=== PATIENT | male | born 2000 | race Caucasian/White ===

== ENCOUNTER → 2022-03-01 | Outpatient (CLI) ==
[~2022-03-01] MED LIST: DOXY-444 PO
== END ==
LOC: M SOG 10:36
PROVIDERS: ATTEND Orthopaedic Surgery Hand Surgery
DX: M79.641 Pain in right hand (principal)

== ENCOUNTER 2022-03-04 07:45 | Day surgery (SDC) | payer OTHER ==
[~2022-03-04] VITALS: Ht 172.7 cm; Wt 66.1 kg
[~2022-03-04 07:45] MED LIST changes: +LIDOCAINE W/EPINEPHRINE 1% 20ML VIAL ID ONE; +SODIUM BICARBONATE 8.4% INJ 50MEQ 50ML VIAL ID ONE
[2022-03-04] MEDS ORDERED: LIDOCAINE 1% MDV 20ML VIAL XX ONE (09:00)
[2022-03-04] MEDS ORDERED: BUPIVACAINE HCL 0.25% 30ML VIAL As Ordered ONE (09:35)
[2022-03-04 10:24] VITALS: BP 127/79
[2022-03-04] MEDS ORDERED: PERC5TAB12 PO (10:32)
== END 2022-03-04 11:00 | disposition home or self-care (01) ==
LOC: M SDC 07:45
PROVIDERS: ATTEND Orthopaedic Surgery Hand Surgery
DX: S60.450A Superficial foreign body of right index finger, initial encounter (principal); X58.XXXA Exposure to other specified factors, initial encounter; Z79.2 Long term (current) use of antibiotics; Z88.1 Allergy status to other antibiotic agents; Z88.0 Allergy status to penicillin

== ENCOUNTER 2022-05-20 18:28 | Emergency (ER) | payer OTHER ==
[~2022-05-20] VITALS: Ht 175.3 cm; Wt 68.5 kg
[~2022-05-20 18:28] MED LIST changes: -LIDOCAINE W/EPINEPHRINE 1% 20ML VIAL ID ONE; +PERC5TAB12 PO; -SODIUM BICARBONATE 8.4% INJ 50MEQ 50ML VIAL ID ONE
[2022-05-20 19:49] LABS: BASO # 0.1 10^3/uL (0.0-0.2); BASO % 0.6 % (0.0-1.0); EOS # 0.1 10^3/uL (0.0-0.5); EOS % 0.5 % (0.0-3.0); HEMATOCRIT 43.3 % (42.0-52.0); HEMOGLOBIN 14.1 g/dl (13.5-17.5); LYMPH # 1.6 10^3/uL (1.5-5.0); LYMPH % 15.8 % (24.0-44.0); MEAN CORPUSCULAR HEMOGLOBIN 29.3 pg (27.0-33.0); MEAN CORPUSCULAR HGB CONC 32.6 g/dl (32.0-36.5); MEAN CORPUSCULAR VOLUME 89.8 fl (80.0-96.0); MONO # 0.8 10^3/uL (0.0-0.8); MONO % 8.1 % (2.0-8.0); NEUTROPHILS # 7.4 10^3/uL (1.5-8.5); NEUTROPHILS % 74.6 % (36.0-66.0); PLATELET COUNT, AUTOMATED 315 10^3/uL (150-450); RED BLOOD COUNT 4.82 10^6/uL (4.30-6.10); WHITE BLOOD COUNT 9.9 10^3/uL (4.0-10.0)
[2022-05-20 20:10] LABS: CK-MB VALUE MASS < 1.0 NG/ML (<3.6)
[2022-05-20 20:13] LABS: THYROID STIMULATING HORMONE 0.745 uIU/ML (0.55-4.78)
[2022-05-20 20:14] LABS: T UPTAKE 35.2 % (22.5-37.0)
[2022-05-20 20:17] LABS: BLOOD UREA NITROGEN 11 MG/DL (9-23); CALCIUM LEVEL 9.1 MG/DL (8.5-10.1); CARBON DIOXIDE LEVEL 25 MMOL/L (20-31); CHLORIDE LEVEL 108 MMOL/L (98-107); CPK CREATINE PHOSPHOKINASE 334 U/L (46-171); CREATININE FOR GFR 0.93 MG/DL (0.70-1.30); GLOMERULAR FILTRATION RATE > 60.0 (>60); GLUCOSE, FASTING 59 MG/DL (60-100); MB/CK RELATIVE INDEX 0.29 (< OR =4); POTASSIUM SERUM 3.5 MMOL/L (3.5-5.1); SODIUM LEVEL 141 MMOL/L (136-145)
[2022-05-20 21:14] VITALS: BP 141/70
[2022-05-20 21:42] LABS: MAGNESIUM LEVEL 1.7 MG/DL (1.8-2.4)
[2022-05-20 21:59] LABS: FREE THYROXINE INDEX 5.2 % (1.4-3.8); THYROXINE (T4) 14.8 UG/DL (4.5-10.9)
== END 2022-05-20 21:16 | disposition home or self-care (01) ==
LOC: M ED 18:28
DX: R00.2 Palpitations (principal); E16.2 Hypoglycemia, unspecified; Z88.1 Allergy status to other antibiotic agents

== ENCOUNTER 2022-06-16 20:04 | Emergency (ER) | payer OTHER ==
[~2022-06-16] VITALS: Ht 175.3 cm; Wt 65.9 kg
[~2022-06-16 20:04] MED LIST changes: +DIPH12.529 PO; +IBUP100S65 PO
[2022-06-16] MEDS ORDERED: ACET1TAB55 PO (20:08)
[2022-06-16] MEDS ORDERED: methocarbamoL 750 MG TAB PO ONE (21:55)
[2022-06-16] MEDS ORDERED: NS 1,000 ML IV ONE (21:55)
[2022-06-16] MEDS ORDERED: KETOROLAC 30 MG/ML 1ML VIAL IV ONE (21:55)
[2022-06-16 22:36] LABS: BASO # 0.1 10^3/uL (0.0-0.2); BASO % 0.6 % (0.0-1.0); EOS # 0.1 10^3/uL (0.0-0.5); EOS % 1.1 % (0.0-3.0); HEMATOCRIT 38.9 % (42.0-52.0); LYMPH # 2.2 10^3/uL (1.5-5.0); LYMPH % 27.2 % (24.0-44.0); MEAN CORPUSCULAR HEMOGLOBIN 29.5 pg (27.0-33.0); MEAN CORPUSCULAR HGB CONC 33.4 g/dl (32.0-36.5); MEAN CORPUSCULAR VOLUME 88.4 fl (80.0-96.0); MONO # 0.7 10^3/uL (0.0-0.8); MONO % 8.2 % (2.0-8.0); NEUTROPHILS % 62.6 % (36.0-66.0); PLATELET COUNT, AUTOMATED 275 10^3/uL (150-450); WHITE BLOOD COUNT 7.9 10^3/uL (4.0-10.0)
[2022-06-16 22:59] LABS: MAGNESIUM LEVEL 1.8 MG/DL (1.8-2.4)
[2022-06-16 23:41] LABS: APPEARANCE, URINE CLEAR (CLEAR); BACTERIA, URINE AUTO NEGATIVE (NEGATIVE); BILIRUBIN, URINE AUTO NEGATIVE (NEGATIVE); BLOOD, URINE BLOOD NEGATIVE (NEGATIVE); COLOR, URINE STRAW (YELLOW); GLUCOSE, URINE (UA) AUTO NEGATIVE (NEGATIVE); KETONE, URINE AUTO NEGATIVE (NEGATIVE); LEUKOCYTE ESTERASE, URINE AUTO NEGATIVE (NEGATIVE); MUCUS, URINE SMALL (NEGATIVE); NITRITE, URINE AUTO NEGATIVE (NEGATIVE); PROTEIN, URINE AUTO NEGATIVE (NEGATIVE); RBC, URINE AUTO 0 /HPF (0-3); SPECIFIC GRAVITY URINE AUTO 1.012 (1.002-1.035); SQUAMOUS EPITHELIAL CELL UR AU 0 /HPF (0-6); UROBILINOGEN, URINE AUTO 0.2 mg/dL (0.0-2.0); WBC, URINE AUTO 1 /HPF (0-3)
[2022-06-16] MEDS ORDERED: METH-1165 PO (23:57)
[2022-06-16] MEDS ORDERED: ASPE4PAD TOP (23:57)
[2022-06-16] MEDS ORDERED: NAPR-837 PO (23:57)
[2022-06-17 00:14] VITALS: BP 127/79
== END 2022-06-17 00:16 | disposition home or self-care (01) ==
LOC: M ED 20:04 → MERGE 20:04 → M ED 06-17 00:16
DX: G57.91 Unspecified mononeuropathy of right lower limb (principal); Z88.1 Allergy status to other antibiotic agents
CPT/HCPCS: 36415; 70450; 72131; 80047; 80053; 80307; 81001; 81002; 82550; 83036; 83690; 83735; 84443; 85025; 86140; 93005; 96374; 99284; J1885

== ENCOUNTER 2022-07-13 23:36 | Emergency (ER) | payer OTHER ==
[~2022-07-13] VITALS: Ht 172.7 cm; Wt 71.8 kg
[~2022-07-13 23:36] MED LIST changes: +ACET1TAB55 PO; +ASPE4PAD TOP; +METH-1165 PO; +NAPR-837 PO
[2022-07-14 06:11] VITALS: BP 130/76
== END 2022-07-14 06:23 | disposition home or self-care (01) ==
LOC: M ED 23:36
DX: M54.50 Low back pain, unspecified (principal); R20.2 Paresthesia of skin; Z88.1 Allergy status to other antibiotic agents; Z79.899 Other long term (current) drug therapy

== ENCOUNTER 2022-07-17 20:36 | Emergency (ER) | payer OTHER ==
[~2022-07-17] VITALS: Ht 172.7 cm; Wt 71.8 kg
[2022-07-17 22:53] LABS: BASO # 0.1 10^3/uL (0.0-0.2); BASO % 0.6 % (0.0-1.0); EOS # 0.1 10^3/uL (0.0-0.5); EOS % 0.7 % (0.0-3.0); HEMATOCRIT 43.1 % (42.0-52.0); HEMOGLOBIN 14.3 g/dl (13.5-17.5); LYMPH # 2.4 10^3/uL (1.5-5.0); MEAN CORPUSCULAR HEMOGLOBIN 29.7 pg (27.0-33.0); MEAN CORPUSCULAR HGB CONC 33.2 g/dl (32.0-36.5); MEAN CORPUSCULAR VOLUME 89.4 fl (80.0-96.0); MONO # 0.9 10^3/uL (0.0-0.8); MONO % 8.7 % (2.0-8.0); NEUTROPHILS # 6.3 10^3/uL (1.5-8.5); NEUTROPHILS % 64.6 % (36.0-66.0); PLATELET COUNT, AUTOMATED 312 10^3/uL (150-450); RED BLOOD COUNT 4.82 10^6/uL (4.30-6.10); WHITE BLOOD COUNT 9.8 10^3/uL (4.0-10.0)
[2022-07-17] MEDS ORDERED: ONDANSETRON 4MG 2ML VIAL IV ONE (23:15)
[2022-07-17] MEDS ORDERED: PANTOPRAZOLE 40MG VIAL IV ONE (23:15)
[2022-07-17] MEDS ORDERED: NS 1,000 ML IV ONE (23:15)
[2022-07-17 23:41] LABS: LIPASE 30 U/L (12-53)
[2022-07-17 23:43] LABS: ALBUMIN 4.3 G/DL (3.2-5.2); ALKALINE PHOSPHATASE 96 U/L (46-116); ALT/SGPT 46 U/L (7.0-40); AST/SGOT 24 U/L (<34); BILIRUBIN,DIRECT < 0.1 MG/DL (<0.4); BILIRUBIN,TOTAL 0.2 MG/DL (0.3-1.2); BLOOD UREA NITROGEN 8 MG/DL (9-23); CALCIUM LEVEL 9.3 MG/DL (8.5-10.1); CARBON DIOXIDE LEVEL 27 MMOL/L (20-31); CHLORIDE LEVEL 106 MMOL/L (98-107); GLOMERULAR FILTRATION RATE > 60.0 (>60); GLUCOSE, FASTING 91 MG/DL (60-100); POTASSIUM SERUM 3.8 MMOL/L (3.5-5.1); SODIUM LEVEL 141 MMOL/L (136-145)
[2022-07-18] MEDS ORDERED: ONDA4TAB6 PO (01:09)
[2022-07-18 01:16] VITALS: BP 142/87
== END 2022-07-18 01:18 | disposition home or self-care (01) ==
LOC: M ED 20:36
DX: K29.70 Gastritis, unspecified, without bleeding (principal); M54.9 Dorsalgia, unspecified; Z88.1 Allergy status to other antibiotic agents
CPT/HCPCS: 80048; 80076; 83690; 85025; 87486; 87581; 87633; 87798; 96374; 96375; 99283; C9113; J2405

== ENCOUNTER 2022-07-23 00:43 | Emergency (ER) | payer OTHER ==
[~2022-07-23] VITALS: Ht 172.7 cm; Wt 71.8 kg
[~2022-07-23 00:43] MED LIST changes: +ONDA4TAB6 PO
[2022-07-23 00:45] VITALS: BP 111/70
[2022-07-23] MEDS ORDERED: METH-1164 PO (06:36)
== END 2022-07-23 06:49 | disposition home or self-care (01) ==
LOC: M ED 00:43
DX: M51.27 Other intervertebral disc displacement, lumbosacral region (principal)

== ENCOUNTER 2022-08-04 21:32 | Emergency (ER) | payer OTHER ==
[~2022-08-04] VITALS: Ht 172.7 cm; Wt 69.1 kg
[~2022-08-04 21:32] MED LIST changes: +METH-1164 PO
[2022-08-04 22:11] LABS: BASO % 0.4 % (0.0-1.0); EOS # 0.1 10^3/uL (0.0-0.5); EOS % 1.1 % (0.0-3.0); HEMATOCRIT 40.7 % (42.0-52.0); HEMOGLOBIN 13.9 g/dl (13.5-17.5); LYMPH # 2.5 10^3/uL (1.5-5.0); LYMPH % 23.9 % (24.0-44.0); MEAN CORPUSCULAR HEMOGLOBIN 29.7 pg (27.0-33.0); MEAN CORPUSCULAR HGB CONC 34.2 g/dl (32.0-36.5); MONO % 9.4 % (2.0-8.0); NEUTROPHILS # 6.7 10^3/uL (1.5-8.5); NEUTROPHILS % 64.8 % (36.0-66.0); PLATELET COUNT, AUTOMATED 293 10^3/uL (150-450); RED BLOOD COUNT 4.68 10^6/uL (4.30-6.10); WHITE BLOOD COUNT 10.3 10^3/uL (4.0-10.0)
[2022-08-04 22:55] LABS: ALBUMIN 4.7 G/DL (3.2-5.2); ALKALINE PHOSPHATASE 92 U/L (46-116); ALT/SGPT 28 U/L (7.0-40); AST/SGOT 24 U/L (<34); BILIRUBIN,DIRECT 0.1 MG/DL (<0.4); BILIRUBIN,TOTAL 0.4 MG/DL (0.3-1.2); BLOOD UREA NITROGEN 13 MG/DL (9-23); CALCIUM LEVEL 9.7 MG/DL (8.5-10.1); CARBON DIOXIDE LEVEL 26 MMOL/L (20-31); CHLORIDE LEVEL 105 MMOL/L (98-107); CK-MB VALUE MASS < 1.0 NG/ML (<3.6); CPK CREATINE PHOSPHOKINASE 297 U/L (46-171); CREATININE FOR GFR 0.85 MG/DL (0.70-1.30); GLOMERULAR FILTRATION RATE > 60.0 (>60); GLUCOSE, FASTING 94 MG/DL (60-100); MB/CK RELATIVE INDEX 0.33 (< OR =4); POTASSIUM SERUM 3.5 MMOL/L (3.5-5.1); SODIUM LEVEL 139 MMOL/L (136-145); TOTAL PROTEIN 7.5 G/DL (5.7-8.2)
[2022-08-04 22:58] LABS: LIPASE 35 U/L (12-53)
[2022-08-05] MEDS ORDERED: KETOROLAC 60MG 2ML VIAL IM ONE (04:35)
[2022-08-05 05:14] LABS: CK-MB VALUE MASS < 1.0 NG/ML (<3.6)
[2022-08-05 05:16] LABS: CPK CREATINE PHOSPHOKINASE 246 U/L (46-171)
[2022-08-05 05:52] VITALS: BP 106/64
== END 2022-08-05 05:54 | disposition home or self-care (01) ==
LOC: M ED 21:32
DX: R07.89 Other chest pain (principal); F17.210 Nicotine dependence, cigarettes, uncomplicated; Z88.0 Allergy status to penicillin
CPT/HCPCS: 71046; 80048; 80076; 82550; 82553; 83690; 84484; 85025; 93005; 96374; 99284; J1885

== ENCOUNTER 2022-08-19 22:42 | Emergency (ER) | payer OTHER ==
[~2022-08-19] VITALS: Ht 172.7 cm; Wt 72.2 kg
[2022-08-20] MEDS ORDERED: methylPREDNISolone 125MG 2ML VIAL IV ONE (03:20)
[2022-08-20] MEDS ORDERED: diazePAM 10MG/2ML SYRINGE IM ONE (03:20)
[2022-08-20] MEDS ORDERED: MEDR4PAK PO (05:56)
[2022-08-20] MEDS ORDERED: VALI5TAB PO (05:56)
[2022-08-20 06:10] VITALS: BP 123/80; TEMP 96.8; O2SAT 99
== END 2022-08-20 06:25 | disposition home or self-care (01) ==
LOC: M ED 22:42
DX: M54.30 Sciatica, unspecified side (principal); M51.26 Other intervertebral disc displacement, lumbar region; Z88.0 Allergy status to penicillin; Z79.899 Other long term (current) drug therapy
CPT/HCPCS: 96372; 96374; 99283; J2930; J3360

== ENCOUNTER 2023-01-10 02:57 | Emergency (ER) | payer OTHER ==
[~2023-01-10] VITALS: Ht 172.7 cm; Wt 64.4 kg
[~2023-01-10 02:57] MED LIST changes: +MEDR4PAK PO; +VALI5TAB PO
[2023-01-10 03:45] VITALS: TEMP 98.4
[2023-01-10 06:50] LABS: BASO # 0.1 10^3/uL (0.0-0.2); BASO % 0.8 % (0.0-1.0); EOS # 0.1 10^3/uL (0.0-0.5); EOS % 0.9 % (0.0-3.0); HEMOGLOBIN 14.6 g/dl (13.5-17.5); LYMPH # 2.3 10^3/uL (1.5-5.0); LYMPH % 28.9 % (24.0-44.0); MEAN CORPUSCULAR HEMOGLOBIN 29.9 pg (27.0-33.0); MEAN CORPUSCULAR VOLUME 88.1 fl (80.0-96.0); MONO # 0.7 10^3/uL (0.0-0.8); MONO % 8.5 % (2.0-8.0); NEUTROPHILS # 4.8 10^3/uL (1.5-8.5); NEUTROPHILS % 60.5 % (36.0-66.0); PLATELET COUNT, AUTOMATED 317 10^3/uL (150-450); RED BLOOD COUNT 4.88 10^6/uL (4.30-6.10); WHITE BLOOD COUNT 7.9 10^3/uL (4.0-10.0)
[2023-01-10 07:10] LABS: LIPASE 34 U/L (12-53)
[2023-01-10 07:12] LABS: ALBUMIN 4.5 G/DL (3.2-5.2); ALKALINE PHOSPHATASE 93 U/L (46-116); ALT/SGPT 14 U/L (7.0-40); AST/SGOT 15 U/L (<34); BILIRUBIN,TOTAL 0.3 MG/DL (0.3-1.2); BLOOD UREA NITROGEN 13 MG/DL (9-23); CALCIUM LEVEL 9.8 MG/DL (8.5-10.1); CARBON DIOXIDE LEVEL 26 MMOL/L (20-31); CHLORIDE LEVEL 106 MMOL/L (98-107); GLOMERULAR FILTRATION RATE > 60.0 (>60); GLUCOSE, FASTING 91 MG/DL (60-100); POTASSIUM SERUM 3.9 MMOL/L (3.5-5.1); SODIUM LEVEL 143 MMOL/L (136-145); TOTAL PROTEIN 7.5 G/DL (5.7-8.2)
[2023-01-10 07:45] VITALS: BP 114/62; O2SAT 97
== END 2023-01-10 07:56 | disposition home or self-care (01) ==
LOC: EDBD 02:57 → M ED 02:57
DX: R20.2 Paresthesia of skin (principal); I45.10 Unspecified right bundle-branch block; F17.290 Nicotine dependence, other tobacco product, uncomplicated; Z79.899 Other long term (current) drug therapy; Z88.1 Allergy status to other antibiotic agents; Z88.8 Allergy status to other drugs, medicaments and biological substances